=== PATIENT | female | born 1945 | race Caucasian/White ===

== ENCOUNTER 2016-05-18 07:56 | Day surgery (SDC) | payer OTHER ==
[~2016-05-18] VITALS: Ht 157.5 cm; Wt 52.8 kg
[~2016-05-18 07:56] MED LIST: CITA20TA11 PO; LORA-441 PO; PROP10TA6 PO
[2016-05-18 11:15] VITALS: Ht 157.5 cm; Wt 52.8 kg
[2016-05-18] MEDS ORDERED: MIDAZOLAM 1 MG/ML 2 ML INJ ONE (11:21)
[2016-05-18] MEDS ORDERED: PROPOFOL 20 ML ONE (11:21)
[2016-05-18] MEDS ORDERED: FENTAnyl 50 MCG/ML VIAL ONE (11:22)
[2016-05-18 11:23] VITALS: BP 127/72; PULSE 75; RESP 16
[2016-05-18 12:43] VITALS: BP 116/69; PULSE 62; RESP 16
--- NOTE | 2016-05-19 09:33 | GILP ---
DATE OF PROCEDURE: PROCEDURE: EGD with biopsy and colonoscopy. INDICATION: A 70-year-old female undergoing this procedure for epigastric pain of 3 months and rect al bleeding. The risk of the procedure, related and unrelated complications, anesthetic risks, alte rnatives discussed. Informed consent was obtained. DESCRIPTION OF PROCEDURE: The patient was brought to the GI lab, sedated by Dr. Templeton. After optim al sedation, scope was passed with much ease into esophagus which was grossly within normal limits. Z line was at 38 cm. Stomach mucosa revealed chronic gastritis. Multiple biopsies obtained. Duod enum, first and second parts, was within normal limits. Retroversion in the stomach also was normal . Scope was straightened out and removed with good patient tolerance. IMPRESSION 1. Gastritis. 2. Normal esophagus. 3. Normal Z-line at 38 cm. 4. Normal duodenum. PLAN: Review histopathology. COLONOSCOPY: The patient was turned around, scope was passed with much ease into rectum, advanced t hrough sigmoid, descending, transverse colon all the way into cecum. Appendiceal orifice identified . Terminal ileum was normal up to 2 feet. Rest of the colon appeared normal. Hemorrhoids identifi ed, which is the cause of bleeding, and retroversion also was done. IMPRESSION: 1. Normal findings all the way into cecum. 2. Normal terminal ileum. 3. Melanosis coli, mild. 4. Hemorrhoid which is the cause of bleeding. PLAN: Stay on a high fiber diet and Sitz baths. We need to pursue further workup for abdominal yara n. Dictated By: ISRAEL PATTON/IVA Conf#: [id number] DID#: [id number]
== END 2016-05-18 14:21 | disposition home or self-care (01) ==
LOC: GIL 07:56
PROVIDERS: ATTEND Internal Medicine Gastroenterology
DX: K29.50 Unspecified chronic gastritis without bleeding (principal); K64.9 Unspecified hemorrhoids; I10 Essential (primary) hypertension; E11.9 Type 2 diabetes mellitus without complications
CPT/HCPCS: 43239; 45378; 88305; 88312; J2250; J3010; Z7610

== ENCOUNTER 2016-07-19 15:38 | Emergency (ER) | END 2016-07-19 20:35 | disposition left against medical advice (07) | DX: Z53.21 Procedure and treatment not carried out due to patient leaving prior to being seen by health care provider (principal) ==

== ENCOUNTER 2016-10-03 00:54 | Emergency (ER) | payer SELFPAY ==
[~2016-10-03] VITALS: Ht 165.1 cm; Wt 60.0 kg
[2016-10-03 01:00] VITALS: Ht 165.1 cm; Wt 60.0 kg
== END 2016-10-03 02:37 | disposition left against medical advice (07) ==
LOC: E/R 00:54
DX: Z53.21 Procedure and treatment not carried out due to patient leaving prior to being seen by health care provider (principal)

== ENCOUNTER 2018-06-02 23:38 | Emergency (ER) | payer MEDICARE, OTHER ==
[~2018-06-02] VITALS: Wt 98.8 kg
[2018-06-03] MEDS ORDERED: LIDOCAINE/MYLANTA 40 ML BTL PO ONE (02:30)
[2018-06-03] MEDS ORDERED: FAMO-96 PO (03:01)
--- NOTE | 2018-06-03 03:03 | ERD ---
ER Documentation Chief Complaint Chief Complaint AP, VOMITING X'S 3 HOURS HPI This is a 72-year-old female who presents for evaluation of epigastric pain, and vomiting. Symptoms been going on for the last 3 hours, patient states that they have been intermittent for the last 3 or 4 months, she states that she went to [place] where she was told that she had colitis. She is on antibiotics, she denies fever. She has not had any urinary symptoms, she denies flank pain, she denies vaginal bleeding or vaginal discharge. ROS All systems reviewed and are negative except as per history of present illness. Medications Home Meds Active Scripts Famotidine* (Pepcid*) 20 Mg Tablet, 20 MG PO BID for 14 Days, TAB Prov:KENN STILL MD 06/03/18 Lorazepam* (Ativan*) 0.5 Mg Tablet, 0.5 MG PO Q8H PRN for ANXIETY, #10 TAB Prov:KENN MILLAN MD 02/24/16 Reported Medications Propranolol Hcl* (Propranolol Hcl*) 10 Mg Tablet, 25 MG PO DAILY, TAB 02/24/16 Citalopram Hydrobromide* (Celexa*) 20 Mg Tablet, 20 MG PO DAILY, #30 TAB 02/24/16 Allergies Allergies: Coded Allergies: No Known Allergy (Unverified , 05/18/16) PMhx/Soc History of Surgery: Yes (eye srugery retina) Anesthesia Reaction: No Hx Neurological Disorder: No Hx Respiratory Disorders: No Hx Cardiac Disorders: Yes (palpitations,htn) Hx Psychiatric Problems: No Hx Miscellaneous Medical Probl: No Hx Alcohol Use: No Hx Substance Use: No Hx Tobacco Use: No Smoking Status: Never smoker Physical Exam Vitals Vital Signs Date Temp Pulse Resp B/P (MAP) Pulse Ox O2 O2 Flow FiO2 Time Delivery Rate 06/03/18 78 16 145/66 99 Room Air 03:08 (92) 06/02/18 97.7 80 20 183/74 98 23:42 (110) Physical Exam Const: No acute distress Head: Atraumatic Eyes: Normal Conjunctiva ENT: Normal External Ears, Nose and Mouth. Neck: Full range of motion. No meningismus. Resp: Clear to auscultation bilaterally Cardio: Regular rate and rhythm, no murmurs Abd: Soft, non tender, non distended. Normal bowel sounds Skin: No petechiae or rashes Back: No midline or flank tenderness Ext: No cyanosis, or edema Neur: Awake and alert Psych: Normal Mood and Affect Result Diagram: 06/03/18 0005 06/03/18 0005 Results 24 hrs Laboratory Tests Test 06/03/18 00:05 White Blood Count 10.9 10^3/ul Red Blood Count 4.49 10^6/ul Hemoglobin 12.9 g/dl Hematocrit 38.2 % Mean Corpuscular Volume 85.1 fl Mean Corpuscular Hemoglobin 28.7 pg Mean Corpuscular Hemoglobin Concent 33.8 g/dl Red Cell Distribution Width 13.5 % Platelet Count 228 10^3/UL Mean Platelet Volume 10.9 fl Immature Granulocytes % 0.400 % Neutrophils % 66.8 % Lymphocytes % 21.1 % Monocytes % 10.1 % Eosinophils % 1.2 % Basophils % 0.4 % Nucleated Red Blood Cells % 0.0 /100WBC Immature Granulocytes # 0.040 10^3/ul Neutrophils # 7.3 10^3/ul Lymphocytes # 2.3 10^3/ul Monocytes # 1.1 10^3/ul Eosinophils # 0.1 10^3/ul Basophils # 0.0 10^3/ul Nucleated Red Blood Cells # 0.0 10^3/ul Sodium Level 139 mmol/L Potassium Level 3.5 mmol/L Chloride Level 109 mmol/L Carbon Dioxide Level 22 mmol/L Anion Gap 8 Blood Urea Nitrogen 10 mg/dl Creatinine 0.69 mg/dl Est Glomerular Filtrat Rate mL/min mL/min Glucose Level 132 mg/dl Calcium Level 9.3 mg/dl Total Bilirubin 0.5 mg/dl Direct Bilirubin 0.00 mg/dl Indirect Bilirubin 0.5 mg/dl Aspartate Amino Transf (AST/SGOT) 33 IU/L Alanine Aminotransferase (ALT/SGPT) 23 IU/L Alkaline Phosphatase 144 IU/L Troponin I < 0.012 ng/ml Total Protein 7.8 g/dl Albumin 4.2 g/dl Globulin 3.60 g/dl Albumin/Globulin Ratio 1.16 Lipase 72 U/L Current Medications Medications Dose Sig/Carloz Start Time Status Last (Trade) Ordered Route PRN Stop Time Admin Dose Reason Admin 40 ml ONCE ONCE 06/03/18 DC 06/03/18 Miscellaneous PO 02:30 06/03/18 03:07 Medication 02:31 (Gi Cocktail (2)) Procedures/MDM This 72-year-old female presents for evaluation of abdominal pain. Exam reveals a well-appearing nontoxic female in no acute distress. Her labs were overall unremarkable, her CT abdomen pelvis as noted below. I did extensive discussion with the patient regarding the findings, and while there are no acute emergent findings, she should get follow-up for lymph nodules that were noted, patient follow-up with her PMD this week, a prescription was given to her for Pepcid, at this point I do not suspect acute abdomen, she has no urinary symptoms, I do not suspect pyelonephritis or UTI, she is stable for discharge home. EKG: Rate/Rhythm: Normal Sinus Rhythm QRS, ST, T-waves: No changes consistent w/ acute ischemia Impression: No evidence of ischemia or arrhythmia IMPRESSION: 1. In the center of the small bowel mesentery there is a nodular mass or lymph node cluster measuring approximately 2.2 x 2 cm with equivocal desmoplastic reaction, findings unable to exclude mesenteric adenitis, panniculitis or possibly carcinoid tumor. Consider follow-up evaluation. 2. Mild small bowel ileus pattern is present without evidence of complete obstruction, a small amount of free fluid is seen in the pelvic cul-de-sac. 3. Suggestion of distal gastric wall thickening unable to exclude gastritis, underlying malignancy is believed to be less likely differential diagnostic possibility. 4. Small sliding hiatal hernia. 5. Uterine calcifications are likely vascular but small leiomyomata cannot be excluded. 6. Aortic atherosclerosis is present. Departure Diagnosis: Primary Impression: Abdominal pain Abdominal location: right upper quadrant Qualified Codes: R10.11 - Right upper quadrant pain Condition: Stable Patient Instructions: Abdominal Pain Referrals: ARON BUCIO MD (PCP) Additional Instructions: Call your primary care doctor TOMORROW for an appointment during the next 2-3 days.See the doctor sooner or return here if your condition worsens before your appointment time. KENN STILL MD Jun 03, 2018 03:03
[2018-06-03 03:08] VITALS: BP 145/66; PULSE 78; RESP 16
== END 2018-06-03 03:19 | disposition home or self-care (01) ==
LOC: E/R 23:38
DX: R10.11 Right upper quadrant pain (principal); I10 Essential (primary) hypertension
CPT/HCPCS: 36415; 74176; 80053; 83690; 84484; 85025; 93005